=== PATIENT | female | born 1995 | race Caucasian/White ===

== ENCOUNTER 2016-11-13 00:07 | Emergency (ER) | payer MEDICAID ==
[2016-11-13] MEDS ORDERED: DIPHENHYDRAMINE HCL IV 50 MG/ML VIAL IVP ONE (00:12)
[2016-11-13] MEDS ORDERED: METHYLPREDNISOLONE PF 125MG/VIAL IVP ONE (00:12)
[2016-11-13] MEDS ORDERED: EPINEPHRINE 1 MG/ML AMPUL IM ONE (00:12)
[2016-11-13] MEDS ORDERED: FAMOTIDINE IV 40 MG in 0.9 % SODIUM CHLORIDE 100ML 100 ML IVPB ONE (00:13)
[2016-11-13] MEDS ORDERED: IPRATROPIUM/ALBUTEROL (0.5MG/3MG) NEB INH ONE (00:14)
[2016-11-13] MEDS ORDERED: 0.9 % SODIUM CHLORIDE 1000ML 1,000 ML IV SCH (00:15)
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
== END 2016-11-13 01:36 | disposition home or self-care (01) ==
LOC: ER 00:07
DX: T78.00XA Anaphylactic reaction due to unspecified food, initial encounter (principal); R06.02 Shortness of breath
CPT/HCPCS: 99284 ×2; 96374; 96372; 96375; 94640; J3490; J0171; J1200; J2930; J7030

== ENCOUNTER 2017-02-08 03:03 | Emergency (ER) | payer MEDICAID ==
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
[2017-02-08 03:35] LABS: BLOOD UREA NITROGEN 8 mg/dL (6-20); CREATININE 0.5 mg/dL (0.5-0.9); EST GLOMERULAR FILTRATION RATE > 60 mL/min
[2017-02-08 03:36] LABS: TOTAL PROTEIN 7.7 g/dL (6.6-8.7)
[2017-02-08 03:38] LABS: GLUCOSE,RANDOM 128 mg/dL (74-109)
[2017-02-08 03:41] LABS: ALB/GLOB RATIO 1.6 (1.1-1.8); ALBUMIN 4.7 g/dL (4.0-5.0); ALKALINE PHOSPHATASE 70 U/L (35-104); ALT/SGPT 11 U/L (<33); AST/SGOT 12 U/L (10.0-35.0)
== END 2017-02-08 03:45 | disposition home or self-care (01) ==
LOC: ER 03:03
DX: M79.662 Pain in left lower leg (principal); M79.661 Pain in right lower leg
CPT/HCPCS: 80053; 85379; 99283

== ENCOUNTER 2017-06-10 16:29 | Emergency (ER) | payer MEDICAID ==
[2017-06-10] MEDS ORDERED: ALBUTEROL SULFATE (0.083%) 2.5 MG/3 ML NEB INH ONE (17:06)
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
== END 2017-06-10 18:01 | disposition home or self-care (01) ==
LOC: ER 16:29
DX: J98.01 Acute bronchospasm (principal)
CPT/HCPCS: 94640; 99283; J7613

== ENCOUNTER 2017-09-03 12:33 | Emergency (ER) | payer MEDICAID ==
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
[2017-09-03] MEDS ORDERED: CLINDAMYCIN 600MG/50ML PREMIX 600 MG/50 ML BAG IVPB ONE (12:52)
[2017-09-03] MEDS ORDERED: KETOROLAC 30 MG/ML VIAL IVP ONE (12:53)
[2017-09-03 13:14] LABS: BASO % 0.3 % (0-6); EOS % 4.7 % (0-6); HEMOGLOBIN 13.4 gm/dl (11.6-16.0); LYMPH % 28.6 % (16-45); MEAN CELL VOLUME 87.1 fl (81-97); MEAN CORPUSCULAR HEMOGLOBIN 29.2 pg (27-33); MEAN CORPUSCULAR HGB CONC 33.5 g/dl (32-36); MEAN PLATELET VOLUME 11.5 fl (7.4-10.4); MONO % 7.4 % (0-9); PLATELET COUNT 218 K/uL (130-400); RED BLOOD COUNT 4.59 M/uL (3.80-5.40); RED CELL DISTRIBUTION WIDTH 12.1 % (11.5-14.5); WHITE BLOOD COUNT W/O DIFF 9.6 K/uL (4.2-12.2)
[2017-09-03 13:23] LABS: BLOOD UREA NITROGEN 11 mg/dL (6-20)
[2017-09-03 13:24] LABS: CREATININE 0.5 mg/dL (0.5-0.9); EST GLOMERULAR FILTRATION RATE > 60 mL/min
[2017-09-03 13:26] LABS: GLUCOSE,RANDOM 94 mg/dL (74-109)
== END 2017-09-03 14:04 | disposition home or self-care (01) ==
LOC: ER 12:33
DX: L04.0 Acute lymphadenitis of face, head and neck (principal); M54.2 Cervicalgia; F17.210 Nicotine dependence, cigarettes, uncomplicated
CPT/HCPCS: 99284 ×2; 96365; 96375; 85025; 86140; 80048; J1885

== ENCOUNTER 2017-09-04 11:58 | Emergency (ER) | payer MEDICAID ==
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
== END 2017-09-04 13:48 | disposition home or self-care (01) ==
LOC: ER 11:58
DX: L04.0 Acute lymphadenitis of face, head and neck (principal); F17.210 Nicotine dependence, cigarettes, uncomplicated
CPT/HCPCS: 76536; 99283

== ENCOUNTER 2018-04-21 19:23 | Emergency (ER) | payer BC ==
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
== END 2018-04-21 19:54 | disposition home or self-care (01) ==
LOC: ER 19:23
DX: R03.0 Elevated blood-pressure reading, without diagnosis of hypertension (principal); R42 Dizziness and giddiness; F17.210 Nicotine dependence, cigarettes, uncomplicated
CPT/HCPCS: 99282